=== PATIENT | female | born 1990 | race Caucasian/White ===

== ENCOUNTER 2022-03-25 17:19 | Inpatient (IN) ==
[2022-03-25] MEDS ORDERED: Naloxone 0.4 MG/ML INJ IVP PRN (21:33)
[2022-03-25] MEDS ORDERED: Acetaminophen 325 MG TABLET PO PRN (21:33)
[2022-03-25] MEDS ORDERED: Ondansetron 4 MG/2 ML VIAL IVP PRN (21:33)
[2022-03-25] MEDS ORDERED: Ketorolac 30 MG/ML VIAL IVP PRN (21:33)
[2022-03-25] MEDS ORDERED: Melatonin 3 MG TABLET PO PRN (21:33)
[2022-03-25] MEDS ORDERED: Iopamidol - 370 500 ML MLS IVP ONE (23:19)
[2022-03-25] MEDS: 0.9 % Sodium Chloride 1,000 ML IVC SCH (23:31)
[2022-03-25] MEDS: Piperacillin/Tazobactam 3.375 GM in 0.9 % Sodium Chloride Mini Bag 100 ML IVPB SCH (23:34)
[2022-03-26 05:35] LABS: Hemoglobin 9.5 g/dL (11.5-15.4); Mean Corpuscular HGB Conc 32.8 g/dL (31.6-35.5); Mean Corpuscular Hemoglobin 28.4 pg (28.0-33.3); Mean Corpuscular Volume 86.8 fL (83.0-100.0); Mean Platelet Volume 10.6 fL (9.4-12.4); Platelet Count 259 K/mcL (140-400); Red Blood Count 3.34 M/mcL (3.82-4.97); Red Cell Distribution Width 13.1 % (11.5-14.5); White Blood Count 11.5 K/mcL (4.3-11.1)
[2022-03-26 05:42] LABS: INR 1.2; Prothrombin Time 13.5 Seconds (9.4-12.1)
[2022-03-26 05:45] LABS: Activated Partial Thrombo Time 24.1 Seconds (26.0-36.0)
[2022-03-26 05:59] LABS: BUN/Creatinine Ratio 7 (6-26); Blood Urea Nitrogen 5 mg/dL (6-20); C-Reactive Protein 42 mg/L (Less than 10); Calcium 8.2 mg/dL (8.6-10.3); Carbon Dioxide 25 mEq/L (23-29); Chloride 106 mEq/L (98-107); Glucose 95 mg/dL (70-105); Osmolality,Calculated 283 (280-300); Potassium 3.5 mEq/L (3.5-5.1); Sodium 138 mEq/L (136-145)
[2022-03-26] MEDS ORDERED: *HR* FentaNYL (PF) 100 MCG/2 ML VIAL ONE ×2 (07:54→10:48)
[2022-03-26] MEDS ORDERED: Ketamine HCL *QUVA* 50mg (1mL) SYRINGE ONE (07:54)
[2022-03-26] MEDS ORDERED: Ondansetron 4 MG/2 ML VIAL ONE (07:55)
[2022-03-26] MEDS ORDERED: Lidocaine -MPF 2% 2 ML VIAL ONE (07:55)
[2022-03-26] MEDS ORDERED: *HR* Midazolam HCl 2 MG/2 ML VIAL ONE (07:55)
[2022-03-26] MEDS ORDERED: *HR* Propofol 200 MG/20 ML VIAL IVP ONE (07:55)
[2022-03-26] MEDS ORDERED: Acetaminophen IV 1,000 MG/100 ML BAG IVPB ONE ×2 (10:11→16:00)
[2022-03-26] MEDS ORDERED: Ketorolac 30 MG/ML VIAL ONE (10:38)
[2022-03-26] MEDS: *HR* HYDROmorphone PF 0.5 MG/0.5 ML SYRINGE IVP PRN ×4 (11:05→11:56)
[2022-03-26 11:08] LABS: Source,Synovial Fluid left knee
[2022-03-26] MEDS: *HR* Midazolam HCl 2 MG/2 ML VIAL IVP PRN ×2 (11:10→11:55)
[2022-03-26] MEDS ORDERED: *HR* Midazolam HCl 2 MG/2 ML VIAL IVP ONE (11:50)
[2022-03-26] MEDS ORDERED: Sennosides 8.6 MG TABLET PO PRN (12:27)
[2022-03-26] MEDS ORDERED: Ketorolac 30 MG/ML VIAL IVP SCH (12:27)
[2022-03-26] MEDS ORDERED: Melatonin 3 MG TABLET PO PRN (12:27)
[2022-03-26] MEDS ORDERED: Naloxone 0.4 MG/ML INJ IVP PRN (12:27)
[2022-03-26] MEDS ORDERED: MOM Conc 10 ML UD.LIQ PO PRN (12:27)
[2022-03-26] MEDS ORDERED: Ondansetron 4 MG/2 ML VIAL IVP PRN ×2 (12:27)
[2022-03-26] MEDS ORDERED: 0.9 % Sodium Chloride 1,000 ML IVC SCH (12:27)
[2022-03-26] MEDS ORDERED: *HR* Promethazine 25 MG/ML VIAL IM PRN (12:27)
[2022-03-26 12:48] LABS: Appearance,Synovial Fluid Hazy (Clear-Hazy); Color,Synovial Fluid Amber (Straw)
[2022-03-26] MEDS ORDERED: Piperacillin/Tazobactam 3.375 GM in 0.9 % Sodium Chloride Mini Bag 100 ML IVPB SCH (13:00)
[2022-03-26] MEDS: Piperacillin/Tazobactam 3.375 GM in 0.9 % Sodium Chloride Mini Bag 100 ML IVPB SCH (14:07)
[2022-03-26] MEDS: 0.9 % Sodium Chloride 1,000 ML IVC SCH (14:07)
[2022-03-26] MEDS ORDERED: Morphine Sulfate 2 MG/ML SYRINGE IVP PRN (16:21)
[2022-03-26] MEDS: Ascorbic Acid 500 MG TABLET PO SCH (17:02)
[2022-03-26] MEDS: Ringers Solution, Lactated 1,000 ML IVC SCH (17:15)
[2022-03-26] MEDS ORDERED: Vancomycin 1,250 MG/262.5 ML IV.SOLN IVPB SCH (18:00)
[2022-03-26] MEDS: Vancomycin 1,250 MG/262.5 ML IV.SOLN IVPB SCH (18:06)
[2022-03-26] MEDS: Lactobacillus 1 EACH CAP.SPRINK PO SCH (21:20)
[2022-03-26] MEDS: Morphine Sulfate 2 MG/ML SYRINGE IVP PRN (21:21)
[2022-03-27] MEDS: Morphine Sulfate 2 MG/ML SYRINGE IVP PRN ×4 (03:22→21:52)
[2022-03-27 03:50] LABS: Basophils % 0.3 %; Hematocrit 28.1 % (35.3-44.9); Immature Granulocytes % 0.3 % (0-4); Lymphocytes # 2.4 K/mcL (0.6-4.6); Lymphocytes % 20.8 %; Mean Corpuscular Volume 87.3 fL (83.0-100.0); Mean Platelet Volume 10.6 fL (9.4-12.4); Monocytes # 0.6 K/mcL (0.0-1.3); Monocytes % 5.2 %; Neutrophils # 8.5 K/mcL (1.6-8.9); Platelet Count 263 K/mcL (140-400); Red Blood Count 3.22 M/mcL (3.82-4.97); Segmented Neutrophils % 73.4 %; White Blood Count 11.6 K/mcL (4.3-11.1)
[2022-03-27 04:08] LABS: BUN/Creatinine Ratio 11 (6-26); Blood Urea Nitrogen 7 mg/dL (6-20); Calcium 9.1 mg/dL (8.6-10.3); Carbon Dioxide 24 mEq/L (23-29); Chloride 103 mEq/L (98-107); Glucose 104 mg/dL (70-105); Magnesium 1.5 mg/dL (1.6-2.6); Osmolality,Calculated 278 (280-300); Potassium 3.9 mEq/L (3.5-5.1); Sodium 135 mEq/L (136-145)
[2022-03-27 04:11] LABS: Albumin 3.5 g/dL (3.5-5.7); Albumin/Globulin Ratio 0.9 (1.1-2.2); Bilirubin,Indirect 0.4 mg/dL (0.0-1.0); Bilirubin,Total 0.4 mg/dL (0.3-1.0); Globulin 3.8 g/dL (2.4-3.5); Total Protein 7.3 g/dL (6.4-8.9)
[2022-03-27 04:31] LABS: Folate 9.4 ng/mL (3.0-16.0)
[2022-03-27] MEDS: Vancomycin 1,250 MG/262.5 ML IV.SOLN IVPB SCH ×2 (06:41→18:55)
[2022-03-27] MEDS: *HR* Enoxaparin 40 MG/0.4 ML SYRINGE SQ SCH (06:41)
[2022-03-27] MEDS: Multivit/Ca/Min/Fe/FA 1 TAB TABLET PO SCH (08:08)
[2022-03-27] MEDS: Ascorbic Acid 500 MG TABLET PO SCH ×2 (08:08→15:52)
[2022-03-27] MEDS: Lactobacillus 1 EACH CAP.SPRINK PO SCH ×2 (08:09→20:08)
[2022-03-27] MEDS: Ringers Solution, Lactated 1,000 ML IVC SCH (12:50)
[2022-03-28] MEDS: Morphine Sulfate 2 MG/ML SYRINGE IVP PRN ×3 (04:07→16:21)
[2022-03-28 05:13] LABS: Basophils # 0.1 K/mcL (0.0-0.2); Basophils % 0.3 %; Eosinophils % 0.2 %; Hemoglobin 10.2 g/dL (11.5-15.4); Immature Granulocytes % 0.5 % (0-4); Lymphocytes # 2.4 K/mcL (0.6-4.6); Lymphocytes % 11.9 %; Mean Corpuscular HGB Conc 32.9 g/dL (31.6-35.5); Mean Corpuscular Hemoglobin 28.2 pg (28.0-33.3); Mean Corpuscular Volume 85.6 fL (83.0-100.0); Mean Platelet Volume 10.1 fL (9.4-12.4); Monocytes # 0.7 K/mcL (0.0-1.3); Monocytes % 3.2 %; Platelet Count 317 K/mcL (140-400); Red Blood Count 3.62 M/mcL (3.82-4.97); Red Cell Distribution Width 13.2 % (11.5-14.5); Segmented Neutrophils % 83.9 %
[2022-03-28 05:14] LABS: White Blood Count 20.3 K/mcL (4.3-11.1)
[2022-03-28 05:32] LABS: BUN/Creatinine Ratio 13 (6-26); Blood Urea Nitrogen 9 mg/dL (6-20); Calcium 8.9 mg/dL (8.6-10.3); Carbon Dioxide 28 mEq/L (23-29); Chloride 101 mEq/L (98-107); Glucose 100 mg/dL (70-105); Magnesium 1.6 mg/dL (1.6-2.6); Osmolality,Calculated 283 (280-300); Potassium 3.6 mEq/L (3.5-5.1); Sodium 137 mEq/L (136-145)
[2022-03-28] MEDS: Vancomycin 1,250 MG/262.5 ML IV.SOLN IVPB SCH ×2 (06:27→18:07)
[2022-03-28] MEDS: *HR* Enoxaparin 40 MG/0.4 ML SYRINGE SQ SCH (06:28)
[2022-03-28] MEDS: Ascorbic Acid 500 MG TABLET PO SCH ×2 (10:21→16:21)
[2022-03-28] MEDS: Lactobacillus 1 EACH CAP.SPRINK PO SCH ×2 (10:21→22:11)
[2022-03-28] MEDS: Multivit/Ca/Min/Fe/FA 1 TAB TABLET PO SCH (10:21)
[2022-03-28] MEDS ORDERED: Lidocaine -MPF 1% 5 ML AMPUL INFILT ONE (15:43)
[2022-03-28] MEDS: *HR* OxyCODONE/APAP 7.5/325 TABLET PO PRN (22:15)
[2022-03-28] MEDS: hydrOXYzine pamoate 25 MG CAPSULE PO PRN (22:17)
[2022-03-29] MEDS: *HR* OxyCODONE/APAP 7.5/325 TABLET PO PRN ×3 (04:31→19:14)
[2022-03-29 05:21] LABS: Basophils # 0.1 K/mcL (0.0-0.2); Basophils % 0.7 %; Eosinophils # 0.2 K/mcL (0.0-0.6); Hematocrit 31.4 % (35.3-44.9); Hemoglobin 10.2 g/dL (11.5-15.4); Immature Granulocytes % 0.2 % (0-4); Lymphocytes # 3.3 K/mcL (0.6-4.6); Lymphocytes % 38.7 %; Mean Corpuscular HGB Conc 32.5 g/dL (31.6-35.5); Mean Corpuscular Hemoglobin 27.8 pg (28.0-33.3); Mean Corpuscular Volume 85.6 fL (83.0-100.0); Mean Platelet Volume 10.9 fL (9.4-12.4); Monocytes # 0.8 K/mcL (0.0-1.3); Monocytes % 9.3 %; Neutrophils # 4.2 K/mcL (1.6-8.9); Platelet Count 314 K/mcL (140-400); Red Blood Count 3.67 M/mcL (3.82-4.97); Red Cell Distribution Width 13.2 % (11.5-14.5); Segmented Neutrophils % 49.1 %
[2022-03-29 05:29] LABS: White Blood Count 8.6 K/mcL (4.3-11.1)
[2022-03-29 05:33] LABS: BUN/Creatinine Ratio 21 (6-26); Blood Urea Nitrogen 12 mg/dL (6-20); Calcium 9.2 mg/dL (8.6-10.3); Carbon Dioxide 26 mEq/L (23-29); Chloride 104 mEq/L (98-107); Glucose 92 mg/dL (70-105); Magnesium 1.8 mg/dL (1.6-2.6); Osmolality,Calculated 279 (280-300); Potassium 3.5 mEq/L (3.5-5.1); Sodium 135 mEq/L (136-145)
[2022-03-29] MEDS: *HR* Enoxaparin 40 MG/0.4 ML SYRINGE SQ SCH (06:18)
[2022-03-29] MEDS: Vancomycin 1,250 MG/262.5 ML IV.SOLN IVPB SCH ×2 (06:19→19:10)
[2022-03-29] MEDS: Ascorbic Acid 500 MG TABLET PO SCH ×2 (08:16→16:59)
[2022-03-29] MEDS: Lactobacillus 1 EACH CAP.SPRINK PO SCH ×2 (08:17→19:55)
[2022-03-29] MEDS: Multivit/Ca/Min/Fe/FA 1 TAB TABLET PO SCH (08:17)
[2022-03-30] MEDS: hydrOXYzine pamoate 25 MG CAPSULE PO PRN ×2 (02:11→22:57)
[2022-03-30] MEDS: *HR* OxyCODONE/APAP 7.5/325 TABLET PO PRN ×3 (02:11→19:46)
[2022-03-30] MEDS: *HR* Enoxaparin 40 MG/0.4 ML SYRINGE SQ SCH (06:27)
[2022-03-30] MEDS: Vancomycin 1,500 MG/265 ML IV.SOLN IVPB SCH ×2 (06:28→19:47)
[2022-03-30] MEDS: Ascorbic Acid 500 MG TABLET PO SCH ×2 (09:05→17:38)
[2022-03-30] MEDS: Lactobacillus 1 EACH CAP.SPRINK PO SCH ×2 (09:05→19:46)
[2022-03-30] MEDS: Multivit/Ca/Min/Fe/FA 1 TAB TABLET PO SCH (09:05)
[2022-03-30 16:22] LABS: Hematocrit 33.1 % (35.3-44.9); Hemoglobin 10.8 g/dL (11.5-15.4); Mean Corpuscular HGB Conc 32.6 g/dL (31.6-35.5); Mean Corpuscular Hemoglobin 28.1 pg (28.0-33.3); Mean Platelet Volume 11.1 fL (9.4-12.4); Platelet Count 235 K/mcL (140-400); Red Blood Count 3.85 M/mcL (3.82-4.97); Red Cell Distribution Width 13.5 % (11.5-14.5)
[2022-03-30 16:36] LABS: BUN/Creatinine Ratio 22 (6-26); Blood Urea Nitrogen 15 mg/dL (6-20); Carbon Dioxide 22 mEq/L (23-29); Chloride 112 mEq/L (98-107); Glucose 121 mg/dL (70-105); Magnesium 1.9 mg/dL (1.6-2.6); Osmolality,Calculated 288 (280-300); Potassium 4.2 mEq/L (3.5-5.1); Sodium 138 mEq/L (136-145)
[2022-03-30 18:06] LABS: Eosinophils # 0.2 K/mcL (0.0-0.6); Lymphocytes # 3.3 K/mcL (0.6-4.6); Monocytes # 0.4 K/mcL (0.0-1.3); Neutrophils # 5.1 K/mcL (1.6-8.9); Platelet Estimate Normal (Normal); Smudge Cells Present (Not Present)
[2022-03-31 05:01] LABS: Basophils # 0.1 K/mcL (0.0-0.2); Basophils % 0.6 %; Eosinophils # 0.3 K/mcL (0.0-0.6); Eosinophils % 3.2 %; Hemoglobin 9.9 g/dL (11.5-15.4); Immature Granulocytes % 0.4 % (0-4); Lymphocytes # 3.6 K/mcL (0.6-4.6); Lymphocytes % 45.5 %; Mean Corpuscular HGB Conc 31.9 g/dL (31.6-35.5); Mean Corpuscular Hemoglobin 27.7 pg (28.0-33.3); Mean Corpuscular Volume 86.8 fL (83.0-100.0); Monocytes # 0.6 K/mcL (0.0-1.3); Monocytes % 7.5 %; Neutrophils # 3.4 K/mcL (1.6-8.9); Platelet Count 315 K/mcL (140-400); Red Blood Count 3.57 M/mcL (3.82-4.97); Red Cell Distribution Width 13.7 % (11.5-14.5); Segmented Neutrophils % 42.8 %; White Blood Count 7.9 K/mcL (4.3-11.1)
[2022-03-31 05:25] LABS: BUN/Creatinine Ratio 25 (6-26); Blood Urea Nitrogen 15 mg/dL (6-20); Calcium 8.8 mg/dL (8.6-10.3); Carbon Dioxide 27 mEq/L (23-29); Chloride 105 mEq/L (98-107); Glucose 88 mg/dL (70-105); Magnesium 1.8 mg/dL (1.6-2.6); Osmolality,Calculated 286 (280-300); Potassium 3.8 mEq/L (3.5-5.1); Sodium 138 mEq/L (136-145)
[2022-03-31] MEDS: Vancomycin 1,500 MG/265 ML IV.SOLN IVPB SCH ×3 (06:12→20:31)
[2022-03-31] MEDS: *HR* Enoxaparin 40 MG/0.4 ML SYRINGE SQ SCH (06:12)
[2022-03-31] MEDS: Lactobacillus 1 EACH CAP.SPRINK PO SCH ×2 (08:12→20:31)
[2022-03-31] MEDS: Multivit/Ca/Min/Fe/FA 1 TAB TABLET PO SCH (08:12)
[2022-03-31] MEDS: Ascorbic Acid 500 MG TABLET PO SCH ×2 (08:12→16:23)
[2022-04-01 06:31] LABS: Basophils % 0.4 %; Eosinophils # 0.3 K/mcL (0.0-0.6); Eosinophils % 2.8 %; Hematocrit 33.7 % (35.3-44.9); Hemoglobin 10.8 g/dL (11.5-15.4); Immature Granulocytes % 0.4 % (0-4); Lymphocytes # 3.4 K/mcL (0.6-4.6); Lymphocytes % 34.3 %; Mean Corpuscular Hemoglobin 27.6 pg (28.0-33.3); Mean Corpuscular Volume 86.2 fL (83.0-100.0); Monocytes # 0.6 K/mcL (0.0-1.3); Monocytes % 6.2 %; Neutrophils # 5.5 K/mcL (1.6-8.9); Platelet Count 373 K/mcL (140-400); Red Blood Count 3.91 M/mcL (3.82-4.97); Red Cell Distribution Width 13.6 % (11.5-14.5); Segmented Neutrophils % 55.9 %; White Blood Count 9.9 K/mcL (4.3-11.1)
[2022-04-01 06:34] LABS: BUN/Creatinine Ratio 27 (6-26); Blood Urea Nitrogen 16 mg/dL (6-20); Calcium 9.4 mg/dL (8.6-10.3); Carbon Dioxide 26 mEq/L (23-29); Chloride 102 mEq/L (98-107); Glucose 87 mg/dL (70-105); Magnesium 1.8 mg/dL (1.6-2.6); Osmolality,Calculated 283 (280-300); Sodium 136 mEq/L (136-145); Vancomycin,Trough 14 mcg/mL (5-10)
[2022-04-01 07:01] VITALS: O2SAT 97
[2022-04-01] MEDS: Lactobacillus 1 EACH CAP.SPRINK PO SCH ×2 (08:18→19:39)
[2022-04-01] MEDS: Multivit/Ca/Min/Fe/FA 1 TAB TABLET PO SCH (08:19)
[2022-04-01] MEDS: Ascorbic Acid 500 MG TABLET PO SCH ×2 (08:20→15:30)
[2022-04-01] MEDS: Vancomycin 1,500 MG/265 ML IV.SOLN IVPB SCH (08:20)
[2022-04-01] MEDS: *HR* Enoxaparin 40 MG/0.4 ML SYRINGE SQ SCH (08:20)
[2022-04-01] MEDS ORDERED: *HR* OxyCODONE Immed Rel 5 MG TABLET PO ONE (14:31)
[2022-04-01 16:07] VITALS: BP 136/83; PULSE 109; TEMP 97.9
[2022-04-01] MEDS ORDERED: Vancomycin 1,750 MG/517.5 ML IV.SOLN IVPB SCH (20:00)
== END 2022-04-01 23:59 | disposition other institution (70) | DRG 854 ==
LOC: 4WAOSI → SUATTDRO 21:02
PROVIDERS: ADMIT Internal Medicine; ATTEND Family Medicine